=== PATIENT | male | born 1995 | race Caucasian/White ===

== ENCOUNTER 2017-03-30 17:58 | Emergency (ER) | payer BC ==
[~2017-03-30] VITALS: Ht 182.9 cm; Wt 80.5 kg
[~2017-03-30 17:58] MED LIST: CEPH-443 PO; HYDR-762 PO; HYDR25SU23 PR; IBUP800T25 PO; ONDA4TAB35 PO
[2017-03-30 18:05] VITALS: Ht 182.9 cm; Wt 80.5 kg
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
[2017-03-30] MEDS ORDERED: BACITUD TOP (18:22)
[2017-03-30] MEDS ORDERED: IBUP-1542 PO (18:22)
[2017-03-30] MEDS ORDERED: CEPH-443 PO (18:22)
[2017-03-30] MEDS ORDERED: BACITRACIN 0.9 GM OINT TOP ONE (18:30)
[2017-03-30] MEDS ORDERED: DIPHTH/TET/ACEL PERTUSS (ADULT) 0.5 ML VIAL IM* ONE (18:30)
== END 2017-03-30 18:46 | disposition home or self-care (01) ==
LOC: FTE 17:58
DX: T23.201A Burn of second degree of right hand, unspecified site, initial encounter (principal); T23.202A Burn of second degree of left hand, unspecified site, initial encounter; J45.909 Unspecified asthma, uncomplicated; X19.XXXA Contact with other heat and hot substances, initial encounter; Y92.9 Unspecified place or not applicable; Z23 Encounter for immunization
CPT/HCPCS: 16020; 90471; 90715; 99284; Z7610

== ENCOUNTER 2017-04-09 08:29 | Emergency (ER) | payer BC ==
[~2017-04-09] VITALS: Ht 175.3 cm; Wt 80.5 kg
[~2017-04-09 08:29] MED LIST changes: +BACITUD TOP; +IBUP-1542 PO
[2017-04-09 08:34] VITALS: Ht 175.3 cm; Wt 80.5 kg
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
== END 2017-04-09 09:25 | disposition home or self-care (01) ==
LOC: FTE 08:29
DX: Z48.00 Encounter for change or removal of nonsurgical wound dressing (principal); J45.909 Unspecified asthma, uncomplicated; Z87.891 Personal history of nicotine dependence
CPT/HCPCS: 99281